=== PATIENT | male | born 1970 | race Caucasian/White ===

== ENCOUNTER 2017-01-26 10:35 | Emergency (ER) | payer OTHER ==
[~2017-01-26] VITALS: Ht 177.8 cm; Wt 91.0 kg
[~2017-01-26 10:35] MED LIST: ADVIL,NUPRIN,M200 MG PO; ASPIR-TRIN325 M1 PO; ATIVAN2 MG PO; BACTRIM,SEPT1 TABLET PO; CHLORDIAZEPOXID25 MG PO; COLACE100 MG PO; DOCUSATE SODIU100 MG PO; ESCITALOPRAM OX10 MG PO; ESCITALOPRAM OX20 MG PO; FOLIC ACID1 MG PO; FOLVITE1 MG PO; Folvite PO; HYDROXYCUT PO; LEXAPRO10 MG PO; LEXAPRO5 MG PO; LIBRIUM25 MG PO; LISINOPRIL10 MG PO; Librium PO; MOTRIN800 MG PO; NALTREXONE HCL50 MG PO; NICOTINE PATCH1 EAC2 TD; NOHOMEMEDS; NORVASC2.5 MG PO; OMEPRAZOLE20 MG PO; PANTOPRAZOLE SO40 MG PO; PRENATAL TABLE1 EAC3 PO; PRILOSEC OTC20 MG PO; PRILOSEC20 MG PO; PROTONIX20 MG PO; PROTONIX40 MG PO; Protonix PO; Proventil,Ventolin H IH; THERAGRAN1 TABLET PO; THIAMINE HCL100 MG PO; THIAMINE,VITAM100 MG PO; TORADOL10 MG PO; TRAZODONE HCL100 MG PO; Theragran PO; VITAMIN B-1100 MG PO; ZOFRAN4 MG PO; ZOLPIDEM TARTRAT5 MG PO; [UNRECOGNIZED DRUG - OTHER] PO
[2017-01-26 11:32] LABS: BASOPHIL COUNT 0.1 K/uL (0-0.1); EOSINOPHIL (%) 1.2 % (0-5); EOSINOPHIL COUNT 0.1 K/uL (0-0.3); IMMATURE GRANULOCYTE (%) 0.1 % (0.0-0.7); IMMATURE GRANULOCYTE COUNT 0.1 K/uL; LYMPHOCYTE COUNT 2.6 K/uL (1.0-2.8); MCH 33.4 PG (29.0-34.0); MCHC 35.6 G/DL (30.0-36.0); MCV 93.9 FL (86-99); MEAN PLAT.VOLUME 9.4 uM^3 (9.0-12.4); MONOCYTE (%) 12.3 % (3-12); MONOCYTE COUNT 0.9 K/uL (0-0.8); NEUTROPHIL COUNT 3.6 K/uL (1.8-6.4); PLATELET COUNT 225 K/uL (156-360); RBC DIS.WIDTH-CV 13.9 % (11.8-14.6); RBC DIS.WIDTH-SD 45.7 % (39-53); RED BLOOD COUNT 4.79 M/uL (4.00-5.50)
[2017-01-26 11:33] LABS: WHITE BLOOD COUNT 7.3 K/uL (4.1-10.2)
[2017-01-26 11:37] LABS: PTT 21.9 (25-32)
[2017-01-26 11:45] LABS: CHLORIDE 107 mEq/L (99-109); POTASSIUM 3.7 mEq/L (3.7-5.4); SODIUM 147 mEq/L (136-147)
[2017-01-26 11:46] LABS: GLUCOSE 77 mg/dL (70-99)
[2017-01-26 11:48] LABS: ANION GAP 12 MEQ/L (2-14)
[2017-01-26 11:50] LABS: GFR ESTIMATE (CALCULATED) > 59 mL/min/; SERUM ETHYL ALCOHOL 124 mg/dL
[2017-01-26 11:51] LABS: UREA NITROGEN (BUN) 21 mg/dL (9-23)
[2017-01-26 11:55] LABS: TROP-I INTERPRETATION NEGATIVE; TROPONIN-I < 0.01 ng/mL (0.0-0.30)
[2017-01-26 12:00] LABS: AMPHETAMINE NEGATIVE (500 ng/mL); BENZODIAZEPINES PRESUMPTIVE POSITIVE (150 ng/mL); COCAINE NEGATIVE (150 ng/mL); METHAMPHETAMINE NEGATIVE (500 ng/mL); OPIATES (MORPHINE) NEGATIVE (100 ng/mL); PHENCYCLIDINE NEGATIVE (25 ng/mL); THC CANNABINOIDS NEGATIVE (50 ng/mL)
[2017-01-26 12:01] LABS: ADD MEDTOX COMMENT Y; BARBITURATES NEGATIVE (200 ng/mL); INTERNAL CONTROLS VALID? YES; METHADONE NEGATIVE (200 ng/mL); OXYCODONE NEGATIVE (100 ng/mL); PROPOXYPHENE NEGATIVE (300 ng/mL); TRICYCLIC ANTIDEPRESSANTS NEGATIVE (300 ng/mL)
[2017-01-26 12:31] LABS: BENZODIAZEPINES, URINE SCREEN POSITIVE (200 ng/mL)
[2017-01-26 13:12] VITALS: BP 123/99
== END 2017-01-26 13:16 | disposition home or self-care (01) ==
LOC: EME 10:35
PROVIDERS: Emergency Medicine
DX: F41.9 Anxiety disorder, unspecified (principal); F33.1 Major depressive disorder, recurrent, moderate; F10.20 Alcohol dependence, uncomplicated; F17.200 Nicotine dependence, unspecified, uncomplicated; R00.0 Tachycardia, unspecified; Y90.6 Blood alcohol level of 120-199 mg/100 ml
CPT/HCPCS: 71010; 80048; 84484; 84999; 85025; 85610; 85730; 90839; 93005; 99281; 99284; G0480

== ENCOUNTER 2017-01-27 23:30 | Emergency (ER) | payer OTHER ==
[~2017-01-27] VITALS: Ht 177.8 cm; Wt 91.0 kg
[2017-01-28 00:26] LABS: MCH 33.2 PG (29.0-34.0); MCHC 34.8 G/DL (30.0-36.0); MCV 95.5 FL (86-99); MEAN PLAT.VOLUME 9.3 uM^3 (9.0-12.4); PLATELET COUNT 227 K/uL (156-360); RBC DIS.WIDTH-CV 13.7 % (11.8-14.6); RBC DIS.WIDTH-SD 45.9 % (39-53); WHITE BLOOD COUNT 7.5 K/uL (4.1-10.2)
[2017-01-28 00:29] LABS: CHLORIDE 108 mEq/L (99-109); POTASSIUM 3.4 mEq/L (3.7-5.4); SODIUM 144 mEq/L (136-147)
[2017-01-28 00:31] LABS: GLUCOSE 82 mg/dL (70-99)
[2017-01-28 00:31] LABS: ADD MIUA? YES; BILIRUBIN NEGATIVE; BLOOD NEGATIVE; COLOR YELLOW ((YELLOW)); GLUCOSE (STRIP) NEGATIVE; KETONES NEGATIVE; LEUKOCYTES LARGE; NITRITE NEGATIVE; PROTEIN (STRIP) 30; SPECIFIC GRAVITY 1.019 (1.000-1.030); UROBILINOGEN 0.2 MG/DL (0.2-1.0)
[2017-01-28 00:32] LABS: ANION GAP 10 MEQ/L (2-14)
[2017-01-28 00:34] LABS: SERUM ETHYL ALCOHOL 183 mg/dL
[2017-01-28 00:35] LABS: GFR ESTIMATE (CALCULATED) > 59 mL/min/; UREA NITROGEN (BUN) 15 mg/dL (9-23)
[2017-01-28 00:41] LABS: BACTERIA NONE SEEN /HPF; EPITHELIAL CELLS 1+ /HPF; MUCUS 4+ /LPF; UCUL ADDED? YES; WHITE BLOOD CELLS TNTC /HPF (0-5)
[2017-01-28 00:44] LABS: TROP-I INTERPRETATION NEGATIVE; TROPONIN-I < 0.01 ng/mL (0.0-0.30)
[2017-01-28 02:08] LABS: ADD MEDTOX COMMENT Y; AMPHETAMINE NEGATIVE (500 ng/mL); BARBITURATES NEGATIVE (200 ng/mL); BENZODIAZEPINES PRESUMPTIVE POSITIVE (150 ng/mL); COCAINE NEGATIVE (150 ng/mL); INTERNAL CONTROLS VALID? YES; METHADONE NEGATIVE (200 ng/mL); METHAMPHETAMINE NEGATIVE (500 ng/mL); OPIATES (MORPHINE) NEGATIVE (100 ng/mL); OXYCODONE NEGATIVE (100 ng/mL); PHENCYCLIDINE NEGATIVE (25 ng/mL); PROPOXYPHENE NEGATIVE (300 ng/mL); THC CANNABINOIDS NEGATIVE (50 ng/mL); TRICYCLIC ANTIDEPRESSANTS NEGATIVE (300 ng/mL)
[2017-01-28 04:06] LABS: BENZODIAZEPINES, URINE SCREEN POSITIVE (200 ng/mL)
[2017-01-28 04:45] VITALS: BP 116/75
[2017-01-29 13:40] LABS: CHLAMYDIA TRACHOMATIS NEGATIVE; NEISSERIA GONORRHOEAE NEGATIVE
== END 2017-01-28 04:54 | disposition home or self-care (01) ==
LOC: EME 23:30
PROVIDERS: Emergency Medicine
DX: F41.1 Generalized anxiety disorder (principal); N39.0 Urinary tract infection, site not specified; Z11.3 Encounter for screening for infections with a predominantly sexual mode of transmission; F33.1 Major depressive disorder, recurrent, moderate; F10.129 Alcohol abuse with intoxication, unspecified; Y90.6 Blood alcohol level of 120-199 mg/100 ml; F17.200 Nicotine dependence, unspecified, uncomplicated
CPT/HCPCS: 80048; 81003; 84484; 84999; 85027; 87086; 87491; 87591; 90839; 93005; 99281; 99285; G0480; J0696

== ENCOUNTER 2017-02-04 13:51 | Emergency (ER) | payer OTHER ==
[~2017-02-04] VITALS: Ht 177.8 cm; Wt 90.2 kg
[2017-02-04 15:53] LABS: CHLORIDE 105 mEq/L (99-109); HEMATOCRIT 47.9 % (38.0-50.0); MCH 33.3 PG (29.0-34.0); MCHC 35.7 G/DL (30.0-36.0); MCV 93.2 FL (86-99); MEAN PLAT.VOLUME 9.9 uM^3 (9.0-12.4); PLATELET COUNT 207 K/uL (156-360); POTASSIUM 3.7 mEq/L (3.7-5.4); RED BLOOD COUNT 5.14 M/uL (4.00-5.50); SODIUM 146 mEq/L (136-147); WHITE BLOOD COUNT 6.2 K/uL (4.1-10.2)
[2017-02-04 15:55] LABS: GLUCOSE 91 mg/dL (70-99)
[2017-02-04 15:56] LABS: ANION GAP 15 MEQ/L (2-14)
[2017-02-04 15:58] LABS: SERUM ETHYL ALCOHOL 354 mg/dL
[2017-02-04 15:59] LABS: ALKALINE PHOSPHATASE 59 IU/L (3-129); GFR ESTIMATE (CALCULATED) > 59 mL/min/
[2017-02-04 16:00] LABS: UREA NITROGEN (BUN) 13 mg/dL (9-23)
[2017-02-05 02:35] LABS: ADD MIUA? YES; BILIRUBIN NEGATIVE; BLOOD NEGATIVE; COLOR YELLOW ((YELLOW)); GLUCOSE (STRIP) NEGATIVE; KETONES NEGATIVE; LEUKOCYTES NEGATIVE; NITRITE NEGATIVE; PROTEIN (STRIP) 30; SPECIFIC GRAVITY 1.024 (1.000-1.030); UROBILINOGEN 0.2 MG/DL (0.2-1.0)
[2017-02-05 02:42] LABS: BACTERIA RARE /HPF; EPITHELIAL CELLS RARE /HPF; MUCUS 3+ /LPF; RED BLOOD CELLS 0-5 /HPF (0-5)
[2017-02-05 02:44] LABS: AMPHETAMINE NEGATIVE (500 ng/mL); BARBITURATES NEGATIVE (200 ng/mL); BENZODIAZEPINES PRESUMPTIVE POSITIVE (150 ng/mL); COCAINE NEGATIVE (150 ng/mL); INTERNAL CONTROLS VALID? YES; METHADONE NEGATIVE (200 ng/mL); METHAMPHETAMINE NEGATIVE (500 ng/mL); OPIATES (MORPHINE) NEGATIVE (100 ng/mL); OXYCODONE NEGATIVE (100 ng/mL); PHENCYCLIDINE NEGATIVE (25 ng/mL); PROPOXYPHENE NEGATIVE (300 ng/mL); THC CANNABINOIDS NEGATIVE (50 ng/mL); TRICYCLIC ANTIDEPRESSANTS NEGATIVE (300 ng/mL)
[2017-02-05 02:45] LABS: ADD MEDTOX COMMENT Y
[2017-02-05 03:22] LABS: BENZODIAZEPINES, URINE SCREEN POSITIVE (200 ng/mL)
[2017-02-05 14:17] VITALS: BP 109/78
== END 2017-02-05 14:19 ==
LOC: EME → EDBD 13:51 → EME 13:51
PROVIDERS: Emergency Medicine
DX: F10.129 Alcohol abuse with intoxication, unspecified (principal); F32.9 Major depressive disorder, single episode, unspecified; R45.851 Suicidal ideations; F17.200 Nicotine dependence, unspecified, uncomplicated; F19.94 Other psychoactive substance use, unspecified with psychoactive substance-induced mood disorder
CPT/HCPCS: 80053; 81003; 84999; 85027; 90837; 93005; 99281; 99285; G0480; J1630; J2060; J7030

== ENCOUNTER 2017-05-08 10:28 | Inpatient (IN) | payer OTHER ==
[~2017-05-08] VITALS: Ht 177.8 cm; Wt 101.2 kg
[2017-05-08] MEDS ORDERED: GEODON60 MG PO (11:32)
[2017-05-08] MEDS ORDERED: LEXAPRO10 MG PO (11:32)
[2017-05-08 11:45] LABS: HEMATOCRIT 41.8 % (38.0-50.0); MCH 32.7 PG (29.0-34.0); MCHC 34.9 G/DL (30.0-36.0); MCV 93.5 FL (86-99); MEAN PLAT.VOLUME 9.8 uM^3 (9.0-12.4); PLATELET COUNT 196 K/uL (156-360); RBC DIS.WIDTH-CV 13.1 % (11.8-14.6); RBC DIS.WIDTH-SD 44.7 % (39-53); RED BLOOD COUNT 4.47 M/uL (4.00-5.50); WHITE BLOOD COUNT 14.9 K/uL (4.1-10.2)
[2017-05-08 11:55] LABS: CHLORIDE 105 mEq/L (99-109); POTASSIUM 3.9 mEq/L (3.7-5.4); SODIUM 140 mEq/L (136-147)
[2017-05-08 11:56] LABS: GLUCOSE 79 mg/dL (70-99)
[2017-05-08 11:58] LABS: ANION GAP 18 MEQ/L (2-14)
[2017-05-08 12:00] LABS: GFR ESTIMATE (CALCULATED) > 59 mL/min/
[2017-05-08 12:01] LABS: UREA NITROGEN (BUN) 22 mg/dL (9-23)
[2017-05-08 12:05] LABS: TROP-I INTERPRETATION NEGATIVE; TROPONIN-I < 0.01 ng/mL (0.0-0.30)
[2017-05-08] MEDS ORDERED: DAILY VALUE1 EACH PO (13:56)
[2017-05-08 18:26] LABS: TROP-I INTERPRETATION NEGATIVE; TROPONIN-I < 0.01 ng/mL (0.0-0.30)
[2017-05-08 18:56] LABS: TRIGLYCERIDES 94 MG/DL (Normal: <150)
[2017-05-08 18:57] LABS: HDL CHOLESTEROL 64 MG/DL (Desirable>=40); LDL CHOLESTEROL 120 mg/dL (Desirable<100); NON-HDL CHOLESTEROL 139 mg/dL (Desirable<160); TOTAL CHOLESTEROL 203 mg/dL (Desirable<200)
[2017-05-08 19:30] VITALS: BP 131/90
[2017-05-08 23:15] VITALS: BP 129/74
[2017-05-09 01:02] LABS: TROP-I INTERPRETATION NEGATIVE; TROPONIN-I < 0.01 ng/mL (0.0-0.30)
[2017-05-09 03:15] VITALS: BP 124/74
[2017-05-09 06:25] LABS: HEMATOCRIT 37.6 % (38.0-50.0); MCH 33.4 PG (29.0-34.0); MCHC 35.1 G/DL (30.0-36.0); MCV 95.2 FL (86-99); MEAN PLAT.VOLUME 10.1 uM^3 (9.0-12.4); PLATELET COUNT 167 K/uL (156-360); RBC DIS.WIDTH-CV 13.2 % (11.8-14.6); RBC DIS.WIDTH-SD 46.9 % (39-53); RED BLOOD COUNT 3.95 M/uL (4.00-5.50); WHITE BLOOD COUNT 5.8 K/uL (4.1-10.2)
[2017-05-09 06:51] LABS: ALKALINE PHOSPHATASE 36 IU/L (3-129); ANION GAP 8 MEQ/L (2-14); CHLORIDE 105 MEQ/L (99-109); GFR ESTIMATE (CALCULATED) > 59 mL/min/; GLUCOSE 78 mg/dL (70-99); SAMPLE HEMOLYSIS CHECK 1; SAMPLE ICTERIC CHECK 0; SAMPLE LIPEMIA CHECK 0; SODIUM 138 MEQ/L (136-147); TOTAL BILIRUBIN 1.5 MG/DL (0.0-1.0); UREA NITROGEN (BUN) 20 mg/dL (9-23)
[2017-05-09 09:30] VITALS: BP 134/90
[2017-05-09 12:03] VITALS: BP 136/88
[2017-05-09 16:37] VITALS: BP 130/94
[2017-05-09 19:45] VITALS: BP 141/102
[2017-05-09 23:30] VITALS: BP 130/91
[2017-05-10 04:45] VITALS: BP 132/91
[2017-05-10 07:41] VITALS: BP 125/90
[2017-05-10] MEDS ORDERED: ASPIR-LOW81 MG PO (12:36)
[2017-05-10] MEDS ORDERED: CHLORDIAZEPOXID25 MG PO (12:36)
[2017-05-10] MEDS ORDERED: PANTOPRAZOLE SO40 MG PO (12:36)
== END 2017-05-10 13:32 | disposition home or self-care (01) | DRG 313 ==
LOC: EME → EDBD 10:28 → 4EAST 16:54 → EDOF 16:54 → 4EAST 19:21
PROVIDERS: Emergency Medicine; Internal Medicine
DX: R07.89 Other chest pain (principal); E87.2 Acidosis; K21.9 Gastro-esophageal reflux disease without esophagitis; F41.9 Anxiety disorder, unspecified; F17.210 Nicotine dependence, cigarettes, uncomplicated; F32.9 Major depressive disorder, single episode, unspecified; J44.9 Chronic obstructive pulmonary disease, unspecified; F60.3 Borderline personality disorder; E66.9 Obesity, unspecified; Z68.32 Body mass index [BMI] 32.0-32.9, adult; Z91.19 Patient's noncompliance with other medical treatment and regimen; I10 Essential (primary) hypertension; F10.239 Alcohol dependence with withdrawal, unspecified
CPT/HCPCS: 71010; 80048; 80053; 80061; 83735; 84484; 85027; 93005; 99281; 99285; J1650; J2060; J2270; J2405; J3411; J7030

== ENCOUNTER 2017-05-11 14:04 | Emergency (ER) | payer OTHER ==
[~2017-05-11] VITALS: Ht 177.8 cm; Wt 101.0 kg
[~2017-05-11 14:04] MED LIST changes: +ASPIR-LOW81 MG PO; +DAILY VALUE1 EACH PO; +GEODON60 MG PO
[2017-05-11 16:11] LABS: HEMATOCRIT 45.5 % (38.0-50.0); MCH 32.4 PG (29.0-34.0); MCHC 34.5 G/DL (30.0-36.0); MEAN PLAT.VOLUME 9.6 uM^3 (9.0-12.4); PLATELET COUNT 167 K/uL (156-360); RBC DIS.WIDTH-CV 13.4 % (11.8-14.6); RBC DIS.WIDTH-SD 45.7 % (39-53); WHITE BLOOD COUNT 8.6 K/uL (4.1-10.2)
[2017-05-11 16:12] LABS: RED BLOOD COUNT 4.84 M/uL (4.00-5.50)
[2017-05-11 16:24] LABS: CHLORIDE 109 mEq/L (99-109); POTASSIUM 3.8 mEq/L (3.7-5.4); SODIUM 144 mEq/L (136-147)
[2017-05-11 16:26] LABS: GLUCOSE 84 mg/dL (70-99)
[2017-05-11 16:27] LABS: ANION GAP 11 MEQ/L (2-14)
[2017-05-11 16:29] LABS: GFR ESTIMATE (CALCULATED) > 59 mL/min/
[2017-05-11 16:30] LABS: UREA NITROGEN (BUN) 15 mg/dL (9-23)
[2017-05-11 16:32] LABS: TROP-I INTERPRETATION NEGATIVE; TROPONIN-I < 0.01 ng/mL (0.0-0.30)
[2017-05-11 18:25] VITALS: BP 108/81
[2017-05-12] MEDS ORDERED: THIAMINE HCL100 MG PO (05:31)
[2017-05-12] MEDS ORDERED: LIBRIUM25 MG PO (05:31)
== END 2017-05-11 18:27 | disposition left against medical advice (07) ==
LOC: EME 14:04
DX: R07.9 Chest pain, unspecified (principal); E11.9 Type 2 diabetes mellitus without complications; K21.9 Gastro-esophageal reflux disease without esophagitis; R56.9 Unspecified convulsions; F17.200 Nicotine dependence, unspecified, uncomplicated
CPT/HCPCS: 71020; 80048; 84484; 85027; 93005; 99281; 99283

== ENCOUNTER 2017-05-12 03:10 | Emergency (ER) | payer OTHER ==
[~2017-05-12] VITALS: Ht 177.8 cm; Wt 102.1 kg
[2017-05-12 04:43] LABS: HEMATOCRIT 42.2 % (38.0-50.0); MCH 32.7 PG (29.0-34.0); MCHC 35.1 G/DL (30.0-36.0); MCV 93.4 FL (86-99); MEAN PLAT.VOLUME 10.4 uM^3 (9.0-12.4); PLATELET COUNT 160 K/uL (156-360); RBC DIS.WIDTH-CV 13.5 % (11.8-14.6); RBC DIS.WIDTH-SD 45.9 % (39-53); RED BLOOD COUNT 4.52 M/uL (4.00-5.50); WHITE BLOOD COUNT 7.6 K/uL (4.1-10.2)
[2017-05-12 04:57] LABS: CHLORIDE 106 mEq/L (99-109); POTASSIUM 3.4 mEq/L (3.7-5.4); SODIUM 138 mEq/L (136-147)
[2017-05-12 04:59] LABS: GLUCOSE 90 mg/dL (70-99)
[2017-05-12 05:00] LABS: ANION GAP 10 MEQ/L (2-14)
[2017-05-12 05:02] LABS: SERUM ETHYL ALCOHOL < 10 mg/dL
[2017-05-12 05:03] LABS: ALKALINE PHOSPHATASE 42 IU/L (3-129); GFR ESTIMATE (CALCULATED) > 59 mL/min/
[2017-05-12 05:05] LABS: TROP-I INTERPRETATION NEGATIVE; TROPONIN-I < 0.01 ng/mL (0.0-0.30)
[2017-05-12 05:06] LABS: LIPASE 16 U/L (1.0-51.0)
[2017-05-12 05:09] LABS: UREA NITROGEN (BUN) 24 mg/dL (9-23)
[2017-05-12] MEDS ORDERED: THIAMINE HCL100 MG PO (05:31)
[2017-05-12] MEDS ORDERED: LIBRIUM25 MG PO (05:31)
[2017-05-12 05:58] VITALS: BP 100/69
== END 2017-05-12 05:59 | disposition home or self-care (01) ==
LOC: EME → EDBD 03:10 → EME 05:59
PROVIDERS: Emergency Medicine
DX: R07.89 Other chest pain (principal); F10.10 Alcohol abuse, uncomplicated; E11.9 Type 2 diabetes mellitus without complications; K21.9 Gastro-esophageal reflux disease without esophagitis; F31.9 Bipolar disorder, unspecified; F17.200 Nicotine dependence, unspecified, uncomplicated
CPT/HCPCS: 71020; 80053; 83690; 84484; 85027; 93005; 99281; 99285; G0480

== ENCOUNTER → 2017-05-19 | Outpatient (CLI) | payer OTHER | END | disposition home or self-care (01) | LOC: NUC 09:26 | DX: R07.9 Chest pain, unspecified (principal) | CPT/HCPCS: 78452; 93017; A9500 ==

== ENCOUNTER 2017-12-25 01:27 | Emergency (ER) | payer OTHER ==
[~2017-12-25] VITALS: Ht 177.8 cm; Wt 91.1 kg
[2017-12-25 02:31] LABS: HEMATOCRIT 44.4 % (38.0-50.0); HEMOGLOBIN 15.4 G/DL (12.5-16.6); MCH 32.2 PG (29.0-34.0); MCHC 34.7 G/DL (30.0-36.0); MCV 92.7 FL (86-99); PLATELET COUNT 232 K/uL (156-360); RBC DIS.WIDTH-CV 13.7 % (11.8-14.6); RBC DIS.WIDTH-SD 47.3 % (39-53); RED BLOOD COUNT 4.79 M/uL (4.00-5.50); WHITE BLOOD COUNT 12.3 K/uL (4.1-10.2)
[2017-12-25 02:47] LABS: CHLORIDE 110 mEq/L (99-109); POTASSIUM 4.3 mEq/L (3.7-5.4); SODIUM 146 mEq/L (136-147)
[2017-12-25 02:49] LABS: GLUCOSE 80 mg/dL (70-99)
[2017-12-25 02:52] LABS: SERUM ETHYL ALCOHOL 214 mg/dL
[2017-12-25 02:53] LABS: GFR ESTIMATE (CALCULATED) > 59 mL/min/ (58.99-99999)
[2017-12-25 02:54] LABS: UREA NITROGEN (BUN) 22 mg/dL (9-23)
[2017-12-25 03:51] LABS: AMPHETAMINE NEGATIVE (500 ng/mL); BARBITURATES NEGATIVE (200 ng/mL); BENZODIAZEPINES NEGATIVE (150 ng/mL); BUPRENORPHINE NEGATIVE (10 ng/mL); COCAINE NEGATIVE (150 ng/mL); METHADONE NEGATIVE (200 ng/mL); METHAMPHETAMINE PRESUMPTIVE POSITIVE (500 ng/mL); OPIATES (MORPHINE) NEGATIVE (100 ng/mL); OXYCODONE NEGATIVE (100 ng/mL); PHENCYCLIDINE NEGATIVE (25 ng/mL); PROPOXYPHENE NEGATIVE (300 ng/mL); THC CANNABINOIDS NEGATIVE (50 ng/mL); TRICYCLIC ANTIDEPRESSANTS NEGATIVE (300 ng/mL)
[2017-12-25 08:23] VITALS: BP 132/71
== END 2017-12-25 08:26 | disposition home or self-care (01) ==
LOC: EME 01:27
DX: F32.9 Major depressive disorder, single episode, unspecified (principal); F10.129 Alcohol abuse with intoxication, unspecified; Y90.7 Blood alcohol level of 200-239 mg/100 ml; E11.9 Type 2 diabetes mellitus without complications; K21.9 Gastro-esophageal reflux disease without esophagitis; F41.9 Anxiety disorder, unspecified; F17.200 Nicotine dependence, unspecified, uncomplicated
CPT/HCPCS: 80048; 85027; 90839; 93005; 99281; 99285; G0480

== ENCOUNTER 2018-01-07 09:26 | Inpatient (IN) | payer OTHER ==
[~2018-01-07] VITALS: Ht 177.8 cm; Wt 89.5 kg
[2018-01-07 09:56] LABS: BASOPHIL (%) 0.9 % (0-1); BASOPHIL COUNT 0.1 K/uL (0-0.1); EOSINOPHIL (%) 1.4 % (0-5); EOSINOPHIL COUNT 0.1 K/uL (0-0.3); HEMATOCRIT 42.3 % (38.0-50.0); HEMOGLOBIN 14.8 G/DL (12.5-16.6); IMMATURE GRANULOCYTE (%) 0.4 % (0.0-0.7); LYMPHOCYTE (%) 29.6 % (15-42); LYMPHOCYTE COUNT 2.5 K/uL (1.0-2.8); MCV 91.4 FL (86-99); MONOCYTE COUNT 0.9 K/uL (0-0.8); NEUTROPHIL (%) 57.7 % (45-76); NEUTROPHIL COUNT 4.9 K/uL (1.8-6.4); PLATELET COUNT 243 K/uL (156-360); RBC DIS.WIDTH-CV 13.8 % (11.8-14.6); RBC DIS.WIDTH-SD 46.5 % (39-53); RED BLOOD COUNT 4.63 M/uL (4.00-5.50); WHITE BLOOD COUNT 8.5 K/uL (4.1-10.2)
[2018-01-07 10:04] LABS: CHLORIDE 104 mEq/L (99-109); POTASSIUM 3.9 mEq/L (3.7-5.4); SODIUM 141 mEq/L (136-147)
[2018-01-07 10:06] LABS: GLUCOSE 79 mg/dL (70-99)
[2018-01-07 10:10] LABS: CREATININE 0.9 mg/dL (0.6-1.3); GFR ESTIMATE (CALCULATED) > 59 mL/min/ (58.99-99999)
[2018-01-07 10:11] LABS: UREA NITROGEN (BUN) 21 mg/dL (9-23)
[2018-01-07 10:16] LABS: TROP-I INTERPRETATION NEGATIVE; TROPONIN-I < 0.01 ng/mL (0.0-0.30)
[2018-01-07 11:09] LABS: SERUM ETHYL ALCOHOL 130 mg/dL
[2018-01-07 13:13] LABS: TROP-I INTERPRETATION NEGATIVE; TROPONIN-I < 0.01 ng/mL (0.0-0.30)
[2018-01-07 13:25] LABS: AMPHETAMINE NEGATIVE (500 ng/mL); BARBITURATES NEGATIVE (200 ng/mL); BENZODIAZEPINES NEGATIVE (150 ng/mL); BUPRENORPHINE NEGATIVE (10 ng/mL); COCAINE NEGATIVE (150 ng/mL); METHADONE NEGATIVE (200 ng/mL); METHAMPHETAMINE NEGATIVE (500 ng/mL); OPIATES (MORPHINE) NEGATIVE (100 ng/mL); OXYCODONE NEGATIVE (100 ng/mL); PHENCYCLIDINE NEGATIVE (25 ng/mL); PROPOXYPHENE NEGATIVE (300 ng/mL); THC CANNABINOIDS NEGATIVE (50 ng/mL); TRICYCLIC ANTIDEPRESSANTS NEGATIVE (300 ng/mL)
[2018-01-07] MEDS ORDERED: DESYREL 150 MG150 MG PO (13:41)
[2018-01-07] MEDS ORDERED: LEXAPRO20 MG PO (13:41)
[2018-01-07] MEDS ORDERED: TRAZODONE HCL150 MG PO (14:10)
[2018-01-07 14:17] VITALS: BP 144/81
[2018-01-07 15:37] VITALS: BP 144/81
[2018-01-07 19:05] VITALS: BP 137/82
[2018-01-08 07:45] VITALS: BP 163/97
[2018-01-08 10:47] VITALS: BP 137/92
[2018-01-08 12:06] VITALS: BP 145/93
[2018-01-08 15:37] VITALS: BP 125/85
[2018-01-09 07:43] VITALS: BP 115/73
[2018-01-09 15:29] VITALS: BP 110/71
[2018-01-10 07:33] VITALS: BP 108/66
[2018-01-10 15:35] VITALS: BP 113/65
[2018-01-11 07:41] VITALS: BP 111/63
[2018-01-11 15:39] VITALS: BP 118/77
[2018-01-12 07:58] VITALS: BP 115/62
[2018-01-12 15:32] VITALS: BP 112/74
[2018-01-13 07:35] VITALS: BP 104/55
[2018-01-13 15:36] VITALS: BP 120/69
[2018-01-14 06:55] VITALS: BP 106/65
[2018-01-14 15:50] VITALS: BP 123/76
[2018-01-15 08:09] VITALS: BP 111/67
[2018-01-15] MEDS ORDERED: LEXAPRO20 MG PO (09:09)
[2018-01-15] MEDS ORDERED: SEROQUEL200 MG PO (09:09)
== END 2018-01-15 13:33 | disposition home or self-care (01) | DRG 885 ==
LOC: EME 09:26 → EDOF 13:12 → 1WEST 13:12 → ENRESERV 13:48 → 1WEST 14:12
PROVIDERS: Emergency Medicine
DX: F33.2 Major depressive disorder, recurrent severe without psychotic features (principal); F10.220 Alcohol dependence with intoxication, uncomplicated; Y90.6 Blood alcohol level of 120-199 mg/100 ml; F60.9 Personality disorder, unspecified; Z91.19 Patient's noncompliance with other medical treatment and regimen; R45.851 Suicidal ideations; Z81.8 Family history of other mental and behavioral disorders; K21.9 Gastro-esophageal reflux disease without esophagitis; I10 Essential (primary) hypertension; F41.9 Anxiety disorder, unspecified; F17.200 Nicotine dependence, unspecified, uncomplicated; E11.9 Type 2 diabetes mellitus without complications
CPT/HCPCS: 71045; 80048; 84484; 85025; 90839; 93005; 97150 GO; 97165 GO; 99281; 99285; G0480; Q0177

== ENCOUNTER 2018-01-19 01:46 | Inpatient (IN) | payer OTHER ==
[~2018-01-19] VITALS: Ht 177.8 cm; Wt 89.9 kg
[~2018-01-19 01:46] MED LIST changes: +DESYREL 150 MG150 MG PO; +LEXAPRO20 MG PO; +SEROQUEL200 MG PO; +TRAZODONE HCL150 MG PO
[2018-01-19 02:20] LABS: HEMATOCRIT 45.6 % (38.0-50.0); HEMOGLOBIN 16.2 G/DL (12.5-16.6); MCH 32.6 PG (29.0-34.0); MCHC 35.5 G/DL (30.0-36.0); MCV 91.8 FL (86-99); PLATELET COUNT 229 K/uL (156-360); RBC DIS.WIDTH-CV 13.6 % (11.8-14.6); RBC DIS.WIDTH-SD 46.5 % (39-53); RED BLOOD COUNT 4.97 M/uL (4.00-5.50); WHITE BLOOD COUNT 9.2 K/uL (4.1-10.2)
[2018-01-19 02:40] LABS: ALBUMIN 4.6 G/DL (3.2-4.8); ALKALINE PHOSPHATASE 52 IU/L (3-129); ALT (GPT) 25 IU/L (3-49); AST (GOT) 32 IU/L (2-34); CHLORIDE 102 MEQ/L (99-109); CREATININE 1.2 MG/DL (0.6-1.3); GFR ESTIMATE (CALCULATED) > 59 mL/min/ (58.99-99999); GLUCOSE 122 mg/dL (70-99); POTASSIUM 3.7 MEQ/L (3.7-5.4); SODIUM 143 MEQ/L (136-147); TOTAL BILIRUBIN 0.3 MG/DL (0.0-1.0); TOTAL PROTEIN 6.8 G/DL (6.4-8.3); UREA NITROGEN (BUN) 23 mg/dL (9-23)
[2018-01-19 02:41] LABS: TROP-I INTERPRETATION NEGATIVE; TROPONIN-I < 0.01 ng/mL (0.0-0.30)
[2018-01-19 03:44] LABS: ACETAMINOPHEN (TYLENOL) < 10 MCG/ML (10-30); LIPASE 25 U/L (1.0-51.0); SALICYLATE < 3.0 MG/DL (15-30); SERUM ETHYL ALCOHOL 321 mg/dL
[2018-01-19 05:24] LABS: TROP-I INTERPRETATION NEGATIVE; TROPONIN-I < 0.01 ng/mL (0.0-0.30)
[2018-01-19 07:09] LABS: APPEARANCE CLEAR ((CLEAR)); BILIRUBIN NEGATIVE; BLOOD SMALL; COLOR STRAW ((YELLOW)); GLUCOSE (STRIP) NEGATIVE; KETONES NEGATIVE; LEUKOCYTES NEGATIVE; NITRITE NEGATIVE; PROTEIN (STRIP) NEGATIVE; SPECIFIC GRAVITY 1.008 (1.000-1.030); UROBILINOGEN 0.2 MG/DL (0.2-1.0)
[2018-01-19 07:14] LABS: BACTERIA NONE SEEN /HPF; EPITHELIAL CELLS RARE /HPF; MUCUS NONE SEEN /LPF; RED BLOOD CELLS 0-5 /HPF (0-5); UCUL ADDED? NO; WHITE BLOOD CELLS 0-5 /HPF (0-5)
[2018-01-19 07:31] LABS: AMPHETAMINE NEGATIVE (500 ng/mL); BARBITURATES NEGATIVE (200 ng/mL); BENZODIAZEPINES PRESUMPTIVE POSITIVE (150 ng/mL); BUPRENORPHINE NEGATIVE (10 ng/mL); COCAINE NEGATIVE (150 ng/mL); METHADONE NEGATIVE (200 ng/mL); METHAMPHETAMINE NEGATIVE (500 ng/mL); OPIATES (MORPHINE) NEGATIVE (100 ng/mL); OXYCODONE NEGATIVE (100 ng/mL); PHENCYCLIDINE NEGATIVE (25 ng/mL); PROPOXYPHENE NEGATIVE (300 ng/mL); THC CANNABINOIDS NEGATIVE (50 ng/mL); TRICYCLIC ANTIDEPRESSANTS NEGATIVE (300 ng/mL)
[2018-01-19 08:03] LABS: BENZODIAZEPINES, URINE SCREEN Negative (200 ng/mL)
[2018-01-19 13:39] VITALS: BP 140/93
[2018-01-19 14:07] VITALS: BP 140/93
[2018-01-19 16:05] VITALS: BP 151/86
[2018-01-19 19:40] VITALS: BP 141/93
[2018-01-20 07:40] VITALS: BP 123/72
[2018-01-20 15:17] VITALS: BP 134/91
[2018-01-21 08:25] VITALS: BP 111/72
[2018-01-21 15:40] VITALS: BP 134/89
[2018-01-22 08:12] VITALS: BP 104/65
[2018-01-22 16:22] VITALS: BP 120/84
[2018-01-23 07:47] VITALS: BP 90/62
[2018-01-23 15:47] VITALS: BP 122/81
[2018-01-24 07:34] VITALS: BP 114/67
[2018-01-24 15:38] VITALS: BP 118/81
[2018-01-25 07:32] VITALS: BP 100/62
[2018-01-25 15:38] VITALS: BP 126/80
[2018-01-26 07:48] VITALS: BP 121/71
[2018-01-26] MEDS ORDERED: LEXAPRO20 MG PO (08:55)
[2018-01-26] MEDS ORDERED: HYDROXYZINE PAM25 MG PO (08:55)
[2018-01-26] MEDS ORDERED: BUPROPION XL300 MG PO (08:55)
[2018-01-26] MEDS ORDERED: SEROQUEL200 MG PO (08:55)
== END 2018-01-26 10:36 | disposition other institution (70) | DRG 885 ==
LOC: EME 01:46 → EDOF 12:08 → 1WEST 12:08 → ENRESERV 13:26 → 1WEST 13:27
PROVIDERS: Emergency Medicine
DX: F33.1 Major depressive disorder, recurrent, moderate (principal); R45.851 Suicidal ideations; F10.229 Alcohol dependence with intoxication, unspecified; F41.9 Anxiety disorder, unspecified; F64.0 Transsexualism; F60.7 Dependent personality disorder; E11.9 Type 2 diabetes mellitus without complications; G40.909 Epilepsy, unspecified, not intractable, without status epilepticus; G43.909 Migraine, unspecified, not intractable, without status migrainosus; I10 Essential (primary) hypertension; K21.9 Gastro-esophageal reflux disease without esophagitis; R07.89 Other chest pain; Z81.8 Family history of other mental and behavioral disorders; F17.200 Nicotine dependence, unspecified, uncomplicated
CPT/HCPCS: 71046; 80053; 81003; 83690; 84484; 84999; 85027; 90839; 93005; 97150 GO; 97166 GO; 99281; 99285; G0480; Q0177

== ENCOUNTER 2018-04-10 16:15 | Inpatient (IN) | payer OTHER ==
[~2018-04-10] VITALS: Ht 172.7 cm; Wt 88.5 kg
[~2018-04-10 16:15] MED LIST changes: +BUPROPION XL300 MG PO; +HYDROXYZINE PAM25 MG PO
[2018-04-10 17:42] LABS: HEMATOCRIT 42.8 % (38.0-50.0); HEMOGLOBIN 15.4 G/DL (12.5-16.6); MCH 32.6 PG (29.0-34.0); MCV 90.5 FL (86-99); PLATELET COUNT 255 K/uL (156-360); RBC DIS.WIDTH-SD 49.8 % (39-53); RED BLOOD COUNT 4.73 M/uL (4.00-5.50); WHITE BLOOD COUNT 8.3 K/uL (4.1-10.2)
[2018-04-10 17:52] LABS: CHLORIDE 106 mEq/L (99-109); POTASSIUM 3.6 mEq/L (3.7-5.4); SODIUM 144 mEq/L (136-147)
[2018-04-10 17:54] LABS: GLUCOSE 97 mg/dL (70-99)
[2018-04-10 17:57] LABS: SERUM ETHYL ALCOHOL 280 mg/dL
[2018-04-10 17:58] LABS: GFR ESTIMATE (CALCULATED) > 59 mL/min/ (58.99-99999)
[2018-04-10 17:59] LABS: UREA NITROGEN (BUN) 18 mg/dL (9-23)
[2018-04-11 01:52] LABS: APPEARANCE CLOUDY ((CLEAR)); BILIRUBIN NEGATIVE; BLOOD SMALL; COLOR AMBER ((YELLOW)); GLUCOSE (STRIP) NEGATIVE; KETONES 5; LEUKOCYTES MODERATE; NITRITE NEGATIVE; PROTEIN (STRIP) 100; SPECIFIC GRAVITY 1.025 (1.000-1.030)
[2018-04-11 02:01] LABS: AMPHETAMINE NEGATIVE (500 ng/mL); BARBITURATES NEGATIVE (200 ng/mL); BENZODIAZEPINES NEGATIVE (150 ng/mL); BUPRENORPHINE NEGATIVE (10 ng/mL); COCAINE NEGATIVE (150 ng/mL); METHADONE NEGATIVE (200 ng/mL); METHAMPHETAMINE NEGATIVE (500 ng/mL); OPIATES (MORPHINE) NEGATIVE (100 ng/mL); OXYCODONE NEGATIVE (100 ng/mL); PHENCYCLIDINE NEGATIVE (25 ng/mL); PROPOXYPHENE NEGATIVE (300 ng/mL); THC CANNABINOIDS NEGATIVE (50 ng/mL); TRICYCLIC ANTIDEPRESSANTS NEGATIVE (300 ng/mL)
[2018-04-11 02:12] LABS: WHITE BLOOD CELLS 30-40 /HPF (0-5)
[2018-04-11 02:13] LABS: BACTERIA 1+ /HPF; MUCUS 3+ /LPF; RED BLOOD CELLS 0-5 /HPF (0-5); UCUL ADDED? YES
[2018-04-11 02:14] LABS: EPITHELIAL CELLS 1+ /HPF
[2018-04-11 03:34] VITALS: BP 142/92
[2018-04-11 16:00] VITALS: BP 157/105
[2018-04-11 17:06] VITALS: BP 141/94
[2018-04-12 07:42] VITALS: BP 122/80
[2018-04-12 15:19] VITALS: BP 140/85
[2018-04-13 07:48] VITALS: BP 114/75
[2018-04-13 16:09] VITALS: BP 123/88
[2018-04-14 07:33] VITALS: BP 109/67
[2018-04-14 15:57] VITALS: BP 121/76
[2018-04-15 07:55] VITALS: BP 98/63
[2018-04-15] MEDS ORDERED: CEPHALEXIN500 MG PO (09:45)
[2018-04-15] MEDS ORDERED: VENLAFAXINE HCL75 M3 PO (09:45)
[2018-04-15] MEDS ORDERED: SEROQUEL200 MG PO (09:45)
== END 2018-04-15 13:08 | disposition home or self-care (01) | DRG 885 ==
LOC: EME 16:15 → EDOF 04-11 02:01 → 1WEST 04-11 02:01 → ENRESERV 04-11 02:46 → 1WEST 04-11 03:28
PROVIDERS: Emergency Medicine
DX: F33.2 Major depressive disorder, recurrent severe without psychotic features (principal); N39.0 Urinary tract infection, site not specified; R45.851 Suicidal ideations; Y90.8 Blood alcohol level of 240 mg/100 ml or more; F60.9 Personality disorder, unspecified; F10.229 Alcohol dependence with intoxication, unspecified; F41.9 Anxiety disorder, unspecified; E11.9 Type 2 diabetes mellitus without complications; F17.200 Nicotine dependence, unspecified, uncomplicated; F64.0 Transsexualism
CPT/HCPCS: 80048; 81003; 85027; 87086; 90839; 97150 GO; 97166 GO; 99281; 99285; G0480; Q0177

== ENCOUNTER 2018-04-26 16:02 | Emergency (ER) | payer OTHER ==
[~2018-04-26] VITALS: Ht 167.6 cm; Wt 85.1 kg
[~2018-04-26 16:02] MED LIST changes: +CEPHALEXIN500 MG PO; +VENLAFAXINE HCL75 M3 PO
[2018-04-26 17:27] LABS: BASOPHIL (%) 0.6 % (0-1); BASOPHIL COUNT 0.1 K/uL (0-0.1); EOSINOPHIL (%) 0.4 % (0-5); EOSINOPHIL COUNT 0.1 K/uL (0-0.3); HEMATOCRIT 42.8 % (38.0-50.0); HEMOGLOBIN 15.3 G/DL (12.5-16.6); IMMATURE GRANULOCYTE (%) 0.4 % (0.0-0.7); LYMPHOCYTE (%) 28.8 % (15-42); LYMPHOCYTE COUNT 3.2 K/uL (1.0-2.8); MCHC 35.7 G/DL (30.0-36.0); MCV 92.4 FL (86-99); MONOCYTE (%) 8.7 % (3-12); NEUTROPHIL (%) 61.1 % (45-76); NEUTROPHIL COUNT 6.8 K/uL (1.8-6.4); PLATELET COUNT 213 K/uL (156-360); RBC DIS.WIDTH-SD 54.1 % (39-53); RED BLOOD COUNT 4.63 M/uL (4.00-5.50); WHITE BLOOD COUNT 11.1 K/uL (4.1-10.2)
[2018-04-26 17:31] LABS: INTER. NORMALIZED RATIO 0.9
[2018-04-26 17:33] LABS: CHLORIDE 104 mEq/L (99-109); SODIUM 140 mEq/L (136-147)
[2018-04-26 17:34] LABS: MAGNESIUM 2.2 mg/dL (1.3-2.7); PTT 22.2 SEC (25-37)
[2018-04-26 17:35] LABS: GLUCOSE 116 mg/dL (70-99)
[2018-04-26 17:39] LABS: GFR ESTIMATE (CALCULATED) > 59 mL/min/ (58.99-99999)
[2018-04-26 17:40] LABS: UREA NITROGEN (BUN) 18 mg/dL (9-23)
[2018-04-26 17:46] LABS: TROP-I INTERPRETATION NEGATIVE; TROPONIN-I < 0.01 ng/mL (0.0-0.30)
[2018-04-26 17:48] LABS: SERUM ETHYL ALCOHOL 140 mg/dL
[2018-04-26 19:57] LABS: TROP-I INTERPRETATION NEGATIVE; TROPONIN-I < 0.01 ng/mL (0.0-0.30)
[2018-04-26 22:55] LABS: APPEARANCE CLEAR ((CLEAR)); BILIRUBIN NEGATIVE; BLOOD NEGATIVE; COLOR YELLOW ((YELLOW)); GLUCOSE (STRIP) 50; KETONES NEGATIVE; LEUKOCYTES TRACE; NITRITE NEGATIVE; PROTEIN (STRIP) 30; SPECIFIC GRAVITY 1.028 (1.000-1.030)
[2018-04-26 22:59] LABS: BACTERIA RARE /HPF; EPITHELIAL CELLS RARE /HPF; HYALINE CASTS 0-5 /LPF; MUCUS 2+ /LPF; RED BLOOD CELLS 0-5 /HPF (0-5)
[2018-04-26 23:28] LABS: AMPHETAMINE NEGATIVE (500 ng/mL); BARBITURATES NEGATIVE (200 ng/mL); BENZODIAZEPINES PRESUMPTIVE POSITIVE (150 ng/mL); BUPRENORPHINE NEGATIVE (10 ng/mL); COCAINE NEGATIVE (150 ng/mL); METHADONE NEGATIVE (200 ng/mL); METHAMPHETAMINE NEGATIVE (500 ng/mL); OPIATES (MORPHINE) NEGATIVE (100 ng/mL); OXYCODONE NEGATIVE (100 ng/mL); PHENCYCLIDINE NEGATIVE (25 ng/mL); PROPOXYPHENE NEGATIVE (300 ng/mL); THC CANNABINOIDS NEGATIVE (50 ng/mL); TRICYCLIC ANTIDEPRESSANTS NEGATIVE (300 ng/mL)
[2018-04-27 01:18] LABS: BENZODIAZEPINES, URINE SCREEN POSITIVE (200 ng/mL)
[2018-04-27 09:08] VITALS: BP 143/98
== END 2018-04-27 09:11 ==
LOC: EME → EDSEX 16:02 → EME 16:02 → EDBD 16:02 → EME 04-27 09:11
PROVIDERS: Emergency Medicine
DX: F10.239 Alcohol dependence with withdrawal, unspecified (principal); Y90.6 Blood alcohol level of 120-199 mg/100 ml; F33.2 Major depressive disorder, recurrent severe without psychotic features; R45.851 Suicidal ideations; R07.89 Other chest pain; F64.1 Dual role transvestism; F60.9 Personality disorder, unspecified; K21.9 Gastro-esophageal reflux disease without esophagitis; F41.9 Anxiety disorder, unspecified; F31.9 Bipolar disorder, unspecified; E11.9 Type 2 diabetes mellitus without complications; F17.200 Nicotine dependence, unspecified, uncomplicated
CPT/HCPCS: 71045; 80048; 81003; 83735; 84484; 84999; 85025; 85610; 85730; 90837; 93005; 99281; 99285; G0480; J2060; J7030

== ENCOUNTER 2018-06-23 23:09 | Inpatient (IN) | payer OTHER ==
[~2018-06-23] VITALS: Ht 177.8 cm; Wt 90.9 kg
[2018-06-23 23:48] LABS: BASOPHIL (%) 0.8 % (0-1); BASOPHIL COUNT 0.1 K/uL (0-0.1); EOSINOPHIL (%) 1.6 % (0-5); EOSINOPHIL COUNT 0.2 K/uL (0-0.3); HEMATOCRIT 44.9 % (38.0-50.0); HEMOGLOBIN 15.7 G/DL (12.5-16.6); IMMATURE GRANULOCYTE (%) 0.3 % (0.0-0.7); LYMPHOCYTE (%) 34.2 % (15-42); LYMPHOCYTE COUNT 3.2 K/uL (1.0-2.8); MCH 32.4 PG (29.0-34.0); MCV 92.8 FL (86-99); MONOCYTE (%) 8.7 % (3-12); MONOCYTE COUNT 0.8 K/uL (0-0.8); NEUTROPHIL (%) 54.4 % (45-76); NEUTROPHIL COUNT 5.1 K/uL (1.8-6.4); RBC DIS.WIDTH-SD 47.9 % (39-53); RED BLOOD COUNT 4.84 M/uL (4.00-5.50); WHITE BLOOD COUNT 9.3 K/uL (4.1-10.2)
[2018-06-23 23:55] LABS: ALBUMIN 4.3 g/dL (3.2-4.8); CHLORIDE 106 mEq/L (99-109); POTASSIUM 3.7 mEq/L (3.7-5.4); SODIUM 144 mEq/L (136-147)
[2018-06-23 23:57] LABS: GLUCOSE 89 mg/dL (70-99)
[2018-06-23 23:58] LABS: TOTAL PROTEIN 6.8 g/dL (6.4-8.3)
[2018-06-23 23:59] LABS: TOTAL BILIRUBIN 0.6 mg/dL (0.0-1.0)
[2018-06-24] LABS: SERUM ETHYL ALCOHOL 280 mg/dL
[2018-06-24 00:01] LABS: ALKALINE PHOSPHATASE 71 IU/L (3-129); CREATININE 0.9 mg/dL (0.6-1.3); GFR ESTIMATE (CALCULATED) > 59 mL/min/ (58.99-99999)
[2018-06-24 00:02] LABS: UREA NITROGEN (BUN) 18 mg/dL (9-23)
[2018-06-24 00:03] LABS: AST (GOT) 121 IU/L (2-34)
[2018-06-24 00:04] LABS: ALT (GPT) 71 IU/L (3-49); LIPASE 23 U/L (1.0-51.0)
[2018-06-24 00:05] LABS: TROP-I INTERPRETATION NEGATIVE; TROPONIN-I < 0.01 ng/mL (0.0-0.30)
[2018-06-24 00:55] LABS: PLATELET CLUMPS PRESENT - PLATELET COUNT APPEARS ADEQUATE; PLATELET COUNT UNABLE TO REPORT K/uL (156-360)
[2018-06-24 08:08] LABS: AMPHETAMINE NEGATIVE (500 ng/mL); BARBITURATES NEGATIVE (200 ng/mL); BENZODIAZEPINES NEGATIVE (150 ng/mL); BUPRENORPHINE NEGATIVE (10 ng/mL); COCAINE NEGATIVE (150 ng/mL); METHADONE NEGATIVE (200 ng/mL); METHAMPHETAMINE NEGATIVE (500 ng/mL); OPIATES (MORPHINE) NEGATIVE (100 ng/mL); OXYCODONE NEGATIVE (100 ng/mL); PHENCYCLIDINE NEGATIVE (25 ng/mL); PROPOXYPHENE NEGATIVE (300 ng/mL); THC CANNABINOIDS NEGATIVE (50 ng/mL); TRICYCLIC ANTIDEPRESSANTS NEGATIVE (300 ng/mL)
[2018-06-24 12:05] VITALS: BP 158/88
[2018-06-24 12:07] VITALS: BP 158/88
[2018-06-24] MEDS ORDERED: DESYREL 150 MG150 MG PO (12:29)
[2018-06-24] MEDS ORDERED: LEXAPRO20 MG PO (12:30)
[2018-06-24] MEDS ORDERED: ATARAX,VISTARIL25 MG PO (12:30)
[2018-06-24] MEDS ORDERED: NALTREXONE HCL50 MG PO (12:32)
[2018-06-24 16:49] VITALS: BP 141/84
[2018-06-25 07:35] VITALS: BP 118/82
[2018-06-25 15:25] VITALS: BP 129/77
[2018-06-26 07:36] VITALS: BP 111/78
[2018-06-26] MEDS ORDERED: QUETIAPINE FUMA50 MG PO (08:58)
== END 2018-06-26 12:53 | disposition home or self-care (01) | DRG 885 ==
LOC: EME → EDBD 23:09 → EME 23:09 → 1WEST 06-24 09:19 → EDOF 06-24 09:19 → ENRESERV 06-24 11:55 → 1WEST 06-24 11:56
PROVIDERS: Emergency Medicine
DX: F32.1 Major depressive disorder, single episode, moderate (principal); F10.239 Alcohol dependence with withdrawal, unspecified; F10.229 Alcohol dependence with intoxication, unspecified; F41.1 Generalized anxiety disorder; F64.9 Gender identity disorder, unspecified; Y90.8 Blood alcohol level of 240 mg/100 ml or more; F60.9 Personality disorder, unspecified; E11.9 Type 2 diabetes mellitus without complications; K21.9 Gastro-esophageal reflux disease without esophagitis; F17.200 Nicotine dependence, unspecified, uncomplicated; Z91.14 Patient's other noncompliance with medication regimen; Z81.8 Family history of other mental and behavioral disorders
CPT/HCPCS: 71045; 80053; 83690; 83735; 84484; 85025; 90839; 93005; 97150 GO; 97165 GO; 97530 GO; 99281; 99285; G0480; J7040; Q0169

== ENCOUNTER 2018-07-11 06:43 | Emergency (ER) | payer OTHER ==
[~2018-07-11] VITALS: Ht 177.8 cm; Wt 90.9 kg
[~2018-07-11 06:43] MED LIST changes: +ATARAX,VISTARIL25 MG PO; +QUETIAPINE FUMA50 MG PO
[2018-07-11 07:09] LABS: MCH 32.5 PG (29.0-34.0); MCHC 35.6 G/DL (30.0-36.0); MCV 91.5 FL (86-99); PLATELET COUNT 302 K/uL (156-360); RBC DIS.WIDTH-CV 14.3 % (11.8-14.6); RBC DIS.WIDTH-SD 48.3 % (39-53); RED BLOOD COUNT 4.92 M/uL (4.00-5.50); WHITE BLOOD COUNT 8.7 K/uL (4.1-10.2)
[2018-07-11 07:37] LABS: CHLORIDE 106 MEQ/L (99-109); POTASSIUM 3.7 MEQ/L (3.7-5.4); SODIUM 144 MEQ/L (136-147)
[2018-07-11 07:44] LABS: GFR ESTIMATE (CALCULATED) > 59 mL/min/ (58.99-99999); GLUCOSE 89 mg/dL (70-99); SERUM ETHYL ALCOHOL 318 mg/dL; UREA NITROGEN (BUN) 15 mg/dL (9-23)
[2018-07-11 08:19] LABS: APPEARANCE CLEAR ((CLEAR)); BILIRUBIN NEGATIVE; BLOOD NEGATIVE; COLOR YELLOW ((YELLOW)); GLUCOSE (STRIP) NEGATIVE; KETONES NEGATIVE; LEUKOCYTES NEGATIVE; NITRITE NEGATIVE; PROTEIN (STRIP) NEGATIVE; SPECIFIC GRAVITY 1.017 (1.000-1.030)
[2018-07-11 08:28] LABS: AMPHETAMINE NEGATIVE (500 ng/mL); BARBITURATES NEGATIVE (200 ng/mL); BENZODIAZEPINES PRESUMPTIVE POSITIVE (150 ng/mL); BUPRENORPHINE NEGATIVE (10 ng/mL); COCAINE NEGATIVE (150 ng/mL); METHADONE NEGATIVE (200 ng/mL); METHAMPHETAMINE NEGATIVE (500 ng/mL); OPIATES (MORPHINE) NEGATIVE (100 ng/mL); OXYCODONE NEGATIVE (100 ng/mL); PHENCYCLIDINE NEGATIVE (25 ng/mL); PROPOXYPHENE NEGATIVE (300 ng/mL); THC CANNABINOIDS NEGATIVE (50 ng/mL); TRICYCLIC ANTIDEPRESSANTS NEGATIVE (300 ng/mL)
[2018-07-11 09:05] LABS: BENZODIAZEPINES, URINE SCREEN Negative (200 ng/mL)
[2018-07-12 07:53] VITALS: BP 143/96
== END 2018-07-12 08:04 ==
LOC: EME 06:43
PROVIDERS: Nurse Practitioner Family
DX: F33.2 Major depressive disorder, recurrent severe without psychotic features (principal); R45.851 Suicidal ideations; F41.9 Anxiety disorder, unspecified; F10.129 Alcohol abuse with intoxication, unspecified; Y90.8 Blood alcohol level of 240 mg/100 ml or more; F64.1 Dual role transvestism; F60.9 Personality disorder, unspecified; F31.9 Bipolar disorder, unspecified; E11.9 Type 2 diabetes mellitus without complications; K21.9 Gastro-esophageal reflux disease without esophagitis; F17.200 Nicotine dependence, unspecified, uncomplicated
CPT/HCPCS: 80048; 81003; 84999; 85027; 90837; 99281; 99285; G0480; J1630; J2060